=== PATIENT | male | born 1955 | race Caucasian/White ===

== ENCOUNTER 2024-04-17 17:56 | Inpatient (IN) | payer MEDICARE, MEDICAID, SELFPAY ==
[2024-04-17 14:23] VITALS: BMI 28.3
[2024-04-17 14:26] VITALS: BP 129/78
[2024-04-17 14:48] LABS: % Basophils 0.6 % (0-2); % Eosinophils 0.1 % (0-6); % Immature Granulocytes 2.2 % (0-0.5); % Monocytes 11.6 % (1.7-9.3); % Neutrophils 77.5 % (42.2-75.2); Absolute Basophils 0.1 10^3/uL (0-0.2); Absolute Immature Granulocytes 0.5 10^3/uL (0-0.05); Absolute Lymphocytes 1.7 10^3/uL (1.2-3.4); Absolute Monocytes 2.4 10^3/uL (0.1-0.6); Hematocrit 43.9 % (39.0-52.0); Mean Corp Hgb Conc. 34.2 g/dL (33.0-37.0); Mean Corpuscular Hgb 27.8 pg (27.0-31.0); Mean Corpuscular Volume 81.4 fL (80.0-94.0); Mean Platelet Volume 9.8 fL (7.4-10.4); Nucleated Red Blood Cells % 0 % (-); Platelet Count 422 10^3/uL (130-400); Red Blood Cell Count 5.39 10^6/uL (4.70-6.10); Red Cell Dist. Width 13.6 % (11.5-14.5); White Blood Cell Count 20.7 10^3/uL (4.8-10.8)
[2024-04-17 15:05] LABS: ALT (SGPT) 51 U/L (0-50); AST (SGOT) 54 U/L (17-59); Albumin 3.6 g/dl (3.5-5.0); Alkaline Phosphatase 114 U/L (38-126); Blood Urea Nitrogen 26 mg/dl (9-20); Calcium 8.3 mg/dl (8.4-10.2); Carbon Dioxide 27 mmol/L (22-30); Chloride 87 mmol/L (98-107); Glucose 123 mg/dl (70-99); Potassium 3.8 mmol/L (3.5-5.1); Sodium 127 mmol/L (135-145); Total Bilirubin 1.4 mg/dl (0.2-1.3); Total Protein 6.8 g/dl (6.3-8.2); eGFR > 60.00
[2024-04-17 15:08] LABS: COVID-19 Antigen Negative (Negative)
[2024-04-17 17:00] VITALS: BP 149/88
--- NOTE | 2024-04-17 17:09 | ED.GENMED ---
History of Present Illness
General
Chief Complaint: Breathing Problem
Source: patient and family (Brother)
Exam Limitations: none
Time Seen by Provider: 04/17/24 16:59
History of Present Illness
History of Present Illness:
68-year-old male started with congestion weakness about a week ago. Decreased intake. Cough with green sputum. Mild shortness of breath. Very weak.
Past History
Past History
ED Past Medical History: None
Review of Systems
Review of Systems
All Other Systems: Not applicable
Constitutional: Reports fever
Respiratory: Reports cough; Denies hemoptysis
Cardiac: Reports no symptoms
Phy Exam
Physical Exam
Physical Exam:
GENERAL: Alert and oriented. Generally weak appearing
EYE: Orbits normal.
NECK: Supple, no significant adenopathy.
ENT: Pharynx without erythema
CARDIAC: Regular rate and rhythm without any obvious murmurs.
LUNGS: Coarse cough and diffuse expiratory rhonchi
ABDOMEN: Soft, without focal tenderness or distention
NEUROLOGICAL: Alert and oriented , grossly non-focal
SKIN: Warm and dry, no rash or lesion, no discoloration, skin intact.
MUSCULOSKELETAL: No edema,no deformity.Good color
PSYCH: Normal and appropriate interaction.
Scores
Heart Failure Risk
Heart Failure Risk Score: Not Applicable
Course
Orders/Labs/Results
Orders:
Orders
04/17/24 14:29
CXR2 [CR Chest - 2 Views ] Urgent
Comment:
Reason For Exam: Congestion, cough
04/17/24 14:39
CMP [Comprehensive Metabolic Panel] Urgent
COVID-19 Antigen Urgent
Source: Nasal Swab
Complete Blood Count/With Diff Urgent
Influenza A+B Rapid Molecular Urgent
GABINO Source: Nasal Swab
Specimen Description:
04/17/24 Dinner
Regular
04/17/24 17:08
IV Insert/Care/Rem.- Treatment PRN
0.9% Sodium Chloride 1000 ml [Nss] 1,000 ml IV BOLUS
Azithromycin 500 mg/250 ml [Zithromax Infusion] 500 mg in 250 ml IV NOW
CefTRIAXone [Rocephin] 1,000 mg IV NOW STA
04/17/24 17:41
Admit/Transfer Patient As Directed
Co-Sign Provider:
Level of Care: Inpatient admission
Assign to:: Medical/Surgical
Physician / Group: [email or web address]
Diagnosis: Acute viral influenza A infection, asthmatic bronchitis, Rt LLL PNA
Reason for Hospitalization: Acute viral influenza A infection
Associated asthmatic bronchitis
POX CXR for Rt LL infiltrate suspect PNA ( Viral vs Bacterial) ; POS Coloed sputum
Associated with acute hypoxic RI with marginal POx
Assciated general debilty due to weakness
POX CXR for Rt LL infiltrate suspect PNA ( Viral vs Bacterial) ; POS Coloed sputum
Associated with acute hypoxic RI with marginal POx
Assciated general debilty due to weakness
Expected length of stay greater than two midnights?: Yes
ELOS- Estimated Length of Stay in days: 3
I certify the patient meets the requirements for IP care: Yes
PRN Pain Medication Management As Directed
May give lesser potent ordered pain med per pt: Yes
preference::
Protocol:: Medication orders for pain may be administered in a
manner that supports deferring to patient preference
when the pt is:
- Requesting an ordered lesser potent pain medication.
Least to most potent pain medications are defined
as: acetaminophen < NSAID < tramadol < opioids
(morphine, oxycodone, hydromorphone).
- Requesting a lesser dose of the same medication IF
ORDERED.
- Requesting a less intrusive route of administration
if both routes are prescribed by the provider (PO <
IV).
04/17/24 17:43
Code Status As Directed
Resuscitation Status: Full Code
04/17/24 20:45
0.9% Sodium Chloride 1000 ml [Nss] 1,000 ml IV 60 mls/hr
Enoxaparin Sodium [Lovenox] 40 mg SC QPM
Guaifenesin [Mucinex] 600 mg PO Q12
MethylPREDNISolone [Medrol] 24 mg PO ONCE ONE
Oseltamivir Phosphate [Tamiflu] 75 mg PO BID
Oseltamivir Phosphate [Tamiflu] 75 mg PO NOW STA
04/17/24 20:45
Respiratory Culture/Gram Stain Urgent
GABINO Source: Sputum
Specimen Description:
Activity As Directed
Activity Level: Out of Bed-Early Mobility
Intake/ Output As Directed
Frequency: Per unit guidelines
Vital Signs As Directed
Frequency: Per unit guidelines
Weight As Directed
Frequency: Once
Comment: on admission
Pt Eval And Treat Routine
Activity Level: With Assistance
DX Deep Vein Thrombosis Video Routine
04/17/24 20:55
Procalcitonin Routine
PCT Algorithmm Indication: Respiratory
04/17/24 22:00
Doxycycline [Vibramycin] 100 mg PO Q12
04/18/24 06:00
Complete Blood Count/No Diff IN AM
Comprehensive Metabolic Panel IN AM
04/18/24 08:00
MethylPREDNISolone [Medrol] 20 mg PO ONCE ONE
04/18/24 12:00
CefTRIAXone [Rocephin] 1,000 mg IV Q24H
04/19/24 08:00
MethylPREDNISolone [Medrol] 16 mg PO ONCE ONE
04/20/24 08:00
MethylPREDNISolone [Medrol] 12 mg PO ONCE ONE
04/21/24 08:00
MethylPREDNISolone [Medrol] 8 mg PO ONCE ONE
04/22/24 08:00
MethylPREDNISolone [Medrol] 4 mg PO ONCE ONE
Abnormal Lab Results
04/17/24
14:39
WBC 20.7 H 10^3/uL
(4.8-10.8)
Plt Count 422 H 10^3/uL
(130-400)
Abs Immat Gran (auto) 0.5 H 10^3/uL
(0-0.05)
Absolute Neuts (auto) 16.0 H 10^3/uL
(1.4-6.5)
Absolute Monos (auto) 2.4 H 10^3/uL
(0.1-0.6)
Immature Gran % 2.2 H %
(0-0.5)
Neutrophils % 77.5 H %
(42.2-75.2)
Lymphocytes % 8.0 L %
(20.5-51.1)
Monocytes % 11.6 H %
(1.7-9.3)
Sodium 127 L mmol/L
(135-145)
Chloride 87 L mmol/L
(98-107)
BUN 26 H mg/dl
(9-20)
Glucose 123 H mg/dl
(70-99)
Calcium 8.3 L mg/dl
(8.4-10.2)
Total Bilirubin 1.4 H mg/dl
(0.2-1.3)
ALT 51 H U/L
(0-50)
04/17/24 14:39
04/17/24 14:39
Vital Signs
Initial and Last Documented VS:
Initial Vital Signs
Pulse Resp BP Pulse Ox
83 18 129/78 92
04/17/24 14:26 04/17/24 14:26 04/17/24 14:26 04/17/24 14:26
Last Documented Vital Signs
Temp Pulse Resp BP Pulse Ox
97.8 F 92 22 157/82 95
04/17/24 20:16 04/17/24 20:16 04/17/24 20:16 04/17/24 20:16 04/17/24 20:16
MDM/Problems Addressed
Differential Diagnosis Includes:
Patient with influenza positive. Also generally weak. In addition may have a secondary bacterial right lower lobe infiltrate. Patient is homeless. Warrants inpatient management
*Radiology
Radiology exam reviewed: preliminary read by ED provider (Right lower lobe infiltrate)
*Pulse Oximetry
Patient hypoxic: no (Borderline)
*Critical Care Note
Total Time (30-74mins, 75-104mins- exclusive of procedures): Not Applicable
ED Attending Note
-
Portions of this chart may have been created with voice recognition software.� Occasional wrong word or��sound alike� substitutions may have occurred due to the inherent limitations of voice recognition software.
Discharge Plan
Departure
Patient Disposition: Admit
Date of Disposition: 04/17/24
Time of Disposition: 17:11
Presentation/result/management discussed w/ accepting MD/DO: Hospitalist
Discharge Problem:
Influenza, Right lower lobe infiltrate, Severe weakness
Interventions
Interventions:
*Risk Screen - Suicide Last Done: 04/17/24 14:26
*General Assessment Last Done: 04/17/24 14:26
*ED COVID-19 Vaccine History Last Done: 04/17/24 14:26
ED- Cardiac Assessment Last Done: 04/17/24 17:50
ED- Pulmonary Assessment Last Done: 04/17/24 17:50
--- NOTE | 2024-04-17 17:34 | HPS.HSE ---
Family Physician
-
Family Physician:
Chief Complaint
-
congestion weakness
History of Present Illness
68M No significant PMHX seen at ER;
- pw congestion weakness about a week ago.
- decreased PO intake.
- cough with green sputum.
- mild shortness of breath
- very weak.
Medical History
Past Medical History
Past Medical History: Reports None
Past Surgical History: Reports None
Social History
Tobacco: Non-smoker
Alcohol: None
Family History
Family History: Not pertinent
Allergies / Home Medications
Allergies reflects when Allergies were last updated in [employer].
Home Medications with original date entered in [employer]
Allergy/Medication List:
Allergies
Allergy/AdvReac Type Severity Reaction Status Date / Time
No Known Allergies Allergy Verified 04/17/24 14:29
Home Medications
No Meds [No Current Medications] 04/17/24
Review of Systems
-
Constitutional: Reports No Symptoms
EENT: Reports No Symptoms
Respiratory: Reports See HPI, Cough and Trouble Breathing
Cardiac: Reports No Symptoms
Abdomen/GI: Reports No Symptoms
: Reports No Symptoms
Musculoskeletal: Reports No Symptoms
Skin: Reports No Symptoms
Neurological: Reports Weakness
Endocrine: Reports No Symptoms
Hematologic/Lymphatic: Reports No Symptoms
Psych: Reports No Symptoms
Physical Exam
Vital Signs
Vital Signs
Temp Pulse Resp BP Pulse Ox
97.5 F 83 18 129/78 92
04/17/24 17:19 04/17/24 14:26 04/17/24 14:26 04/17/24 14:26 04/17/24 14:26
Physical Exam
General: Well Developed, Well Nourished and No Apparent Distress
HEENT: NormoCephalic, Moist mucous membranes and Atraumatic
Respiratory: Wheezes (Coarse cough and diffuse expiratory rhonchi)
Cardiac: S1/S2 and Regular Rhythm; No Murmur or Rub
GI: Soft, Non Tender, Non Distended and Normal Bowel Sounds; No Organomegaly
Rectal: Deferred by Provider
Musculoskeletal: No Clubbing, No Cyanosis and No Edema
Skin: No Rash
Neuro: Nonfocal/grossly intact
Laboratory Results
-
04/17/24 14:39
04/17/24 14:39
Laboratory Results
Total Bilirubin 1.4 mg/dl (0.2-1.3) H 04/17/24 14:39
AST 54 U/L (17-59) 04/17/24 14:39
ALT 51 U/L (0-50) H 04/17/24 14:39
Alkaline Phosphatase 114 U/L (38-126) 04/17/24 14:39
Data Reviewed
-
Diagnostic Radiology: Other
Lab Data: Labs Reviewed by me
Impression/Plan
-
Vital Signs
Temp Pulse Resp BP Pulse Ox
97.5 F 83 18 129/78 92 on RA
04/17/24 17:19 04/17/24 14:26 04/17/24 14:26 04/17/24 14:26 04/17/24 14:26
Laboratory Tests
04/17/24
14:39
WBC 20.7 H
Hgb 15.0
Plt Count 422 H
Sodium 127 L
Chloride 87 L
BUN 26 H
Creatinine 1.1
eGFR > 60.00
Total Bilirubin 1.4 H
ALT 51 H
SARS-CoV-2 Antigen Negative
CXR: pending final report , I suspct Rt LL infiltrate
No prior Last hospitalist admission:
ASSESSMENT & PLAN
Acute viral influenza A infection
Associated asthmatic bronchitis or reactive AW c/b acute hypoxic RI with marginal POx
POX CXR for Rt LL infiltrate suspect PNA ( Viral vs Bacterial) ; POS Colored sputum
Associated general debility due to weakness and deconditioning
- start Tamiflu
- start Medrol dose pack
- Agree with IV CFTX , add PO Doxy in place of Azithromycin
- check PCT
- Mucinex BID
- Supplemental O2 PRN; Gaol POx to keep above 93
- PT/OT
Hypovolemic hyponatremia due to dehydration and poor PO intake
s/p NS 1 L
- cont NS @ 60/H
- trend BMP in AM
DVT Px: LMWH
Code: Full code
IP MS
[2024-04-17] MEDS: NSS 1000 IV ×2 (17:48→21:25)
[2024-04-17 18:00] VITALS: BP 149/88
[2024-04-17] MEDS: STERILE WATER FOR INJECTION 10 ML IV (18:03)
[2024-04-17] MEDS: ROCEPHIN 1000 MG IV (18:03)
[2024-04-17] MEDS: ZITHROMAX INFUSION 250 IV (18:10)
[2024-04-17 18:17] VITALS: BP 165/79
[2024-04-17] MEDS: DUONEB 3 ML INH (20:00)
[2024-04-17 20:16] VITALS: BP 157/82
--- NOTE | 2024-04-17 20:16 | EDRN ---
Report received, introduced myself to patient, he is asking about something to help him sleep, did shirley romero hospitalist, they would prefer not to, however if still awake around [phone], she said to let her know and she will order something,
patient resting comfortably with call archibald in reach.
[2024-04-17] MEDS: MEDROL 24 MG PO (21:23)
[2024-04-17] MEDS: VIBRAMYCIN 100 MG PO (21:23)
[2024-04-17] MEDS: LOVENOX 40 MG SC (21:23)
[2024-04-17] MEDS: MUCINEX 600 MG PO (21:23)
[2024-04-17] MEDS: TAMIFLU 75 MG PO (21:24)
[2024-04-17 21:29] LABS: Procalcitonin 1.64 ng/ml (0.0-0.25)
[2024-04-17 22:55] VITALS: BP 149/74
--- NOTE | 2024-04-17 23:46 | EDRN ---
Emptied patients urinal and provided with another glass of water for him, resting comfortably with no complaints at this time, call archibald in reach.
[2024-04-18 00:30] VITALS: BP 168/81
--- NOTE | 2024-04-18 02:23 | EDRN ---
Got patient another water and emptied his urinal, resting comfortably at this time.
[2024-04-18 03:24] VITALS: BP 160/90
[2024-04-18 04:34] VITALS: BP 158/89
[2024-04-18 06:25] LABS: Hematocrit 41.6 % (39.0-52.0); Hemoglobin 13.7 g/dL (13.0-18.0); Mean Corp Hgb Conc. 32.9 g/dL (33.0-37.0); Mean Corpuscular Hgb 27.8 pg (27.0-31.0); Mean Corpuscular Volume 84.6 fL (80.0-94.0); Mean Platelet Volume 10.3 fL (7.4-10.4); Platelet Count 428 10^3/uL (130-400); Red Blood Cell Count 4.92 10^6/uL (4.70-6.10); Red Cell Dist. Width 13.7 % (11.5-14.5); White Blood Cell Count 16.8 10^3/uL (4.8-10.8)
[2024-04-18 06:58] LABS: ALT (SGPT) 48 U/L (0-50); AST (SGOT) 55 U/L (17-59); Albumin 3.1 g/dl (3.5-5.0); Alkaline Phosphatase 106 U/L (38-126); Blood Urea Nitrogen 20 mg/dl (9-20); Calcium 7.8 mg/dl (8.4-10.2); Carbon Dioxide 23 mmol/L (22-30); Chloride 95 mmol/L (98-107); Estimated Creatinine Clearance 97 ml/min; Glucose 114 mg/dl (70-99); Potassium 4.7 mmol/L (3.5-5.1); Sodium 131 mmol/L (135-145); Total Protein 6.3 g/dl (6.3-8.2); eGFR > 60.00
[2024-04-18] MEDS: DUONEB 3 ML INH ×4 (07:35→19:45)
[2024-04-18] MEDS: TAMIFLU 75 MG PO ×2 (08:20→19:45)
[2024-04-18] MEDS: VIBRAMYCIN 100 MG PO ×2 (08:20→19:45)
[2024-04-18] MEDS: MUCINEX 600 MG PO ×2 (08:20→19:45)
[2024-04-18] MEDS: MEDROL 20 MG PO (08:20)
[2024-04-18] MEDS: ROCEPHIN 1000 MG IV (11:52)
[2024-04-18] MEDS: STERILE WATER FOR INJECTION 10 ML IV (11:53)
[2024-04-18 14:03] VITALS: BP 142/76
[2024-04-18 15:07] VITALS: BP 142/76; PULSE 94; O2SAT 98
--- NOTE | 2024-04-18 15:13 | W.PN.HOSP.TC ---
Today's Communication/Plan
-
Tamiflu
Supportive care
Doxycycline Rocephin
Incentive spirometer Acapella
BMP in the a.m. for sodium monitoring
Encourage p.o. intake
Assessment / Plan
Assessment / Plan
Sepsis source pulmonary
-Flu A+ with superimposed bacterial pneumonia
-Procalcitonin high
-Sputum culture
-Tamiflu twice daily
--Supportive measures antipyretics antitussives
-Rocephin doxycycline
-Isolation precautions
-Incentive spirometer and Acapella
Acute hypoxemic respiratory failure secondary to above
-Wean oxygen as tolerated
-Goal spo2 >90%
Hyponatremia Hypovolemic likely secondary to insensible losses
-Encourage p.o. intake
-If not improving will need to check urine osm/Tami
Anticipated Discharge: > 48 hours
Subjective/Interval History
-
Date of Service: April 18, 2024
Seen and examined. States he is feeling slightly better. However continues to have green productive cough. Still feeling weak and tired. Requiring supplemental oxygen.
Objective Data
-
Labs:
Laboratory Results
04/18/24
05:48
WBC 16.8 H
Hgb 13.7
Hct 41.6
Plt Count 428 H
Sodium 131 L
Potassium 4.7
Chloride 95 L
Carbon Dioxide 23
BUN 20
Creatinine 0.8
Glucose 114 H
Calcium 7.8 L
Total Bilirubin 1.0
AST 55
ALT 48
Alkaline Phosphatase 106
Vital Signs:
Vital Signs
Temp Pulse Resp BP Pulse Ox
97.6 F 103 22 142/76 94
04/18/24 14:03 04/18/24 14:03 04/18/24 14:03 04/18/24 14:03 04/18/24 14:03
I&O
04/17/24 04/18/24 04/19/24
06:59 06:59 06:59
Intake Total 1250 / 1250
Output Total 1450 / 1450
Balance -200 / -200
Physical Exam
-
General: Well Developed, No Apparent Distress, Fever, Chills, Sweats and Conversant
HEENT: Normocephalic and Atraumatic
Respiratory: Rhonchi
Cardiac: Regular Rhythm and S1/S2
GI: Soft, Nontender, Nondistended and Normal Bowel Sounds
Musculoskeletal: No Clubbing and No Cyanosis
Skin: Warm and Dry
Neuro: Awake, Alert, Oriented and AO x 3
Psych: Calm
[2024-04-18] MEDS: LOVENOX 40 MG SC (18:34)
[2024-04-18 18:42] VITALS: BP 152/74
[2024-04-18] MEDS: NSS IV (20:01)
[2024-04-18 20:29] VITALS: BMI 28.3
[2024-04-19] VITALS: BP 135/79
[2024-04-19] MEDS: DUONEB 3 ML INH ×4 (06:44→20:33)
--- NOTE | 2024-04-19 08:37 | W.PN.UPDATE ---
Update Note
Progress Note Update
I saw and evaluated the patient. I reviewed the resident�s note and agree with findings and plan as documented in the resident�s note.
No new complaints.
Gen: NAD, AAOx3.
Eyes: EOMI, PERRLA, no scleral icterus.
Neck: supple.
CV: RRR, +S1/S2, no m/r/g.
Resp: CTAB, no rales, wheezes, or rhonchi.
Abd: +BS, soft, NT, ND
Skin: No rashes.
Neuro: CN 2-12 intact, non-focal.
Psych: Normal mood and affect.
CXR: mod B/L lower lobe PNA
Acute hypoxemic respiratory failure and sepsis due to influenza A viral infection with superimposed bacterial pneumonia:
-Procalcitonin 1.64
-cont Tamiflu/Rocephin/Doxy
-stop Medrol (no indication)
-currently on 5L NC O2, wean O2 as tolerated
Hypovolemic Hyponatremia:
-improving s/p IVFs
-resume IVFs with NS @ 75cc/hr
FULL/Lovenox
--- NOTE | 2024-04-19 09:02 | W.PN.HOSP.TC ---
Today's Communication/Plan
-
Wean oxygen as able
Continue antibiotics
Incentive spirometry and Acapella
Assessment / Plan
Assessment / Plan
Impression
Influenza A positive with superimposed bacterial pneumonia
Acute hypoxemic respiratory insufficiency
Hypovolemic hyponatremia
Plan
Influenza A positive with superimposed bacterial pneumonia
Tamiflu twice daily-day 2
Continue Rocephin and doxycycline
Incentive spirometry and Acapella
Supportive measures
Antipyretics
Antitussives
PT/OT
Acute hypoxemic respiratory insufficiency secondary to above
On 5 L O2
Wean oxygen as tolerated
Goal spo2 >90%
Hypovolemic hyponatremia
Encourage p.o. intake
If not improving will need to check urine osm/Tami
Follow BMP
Full code
DVT prophylaxis Lovenox
Anticipated Discharge: > 48 hours
Subjective/Interval History
-
Date of Service: April 19, 2024
No over night events
Objective Data
-
Labs:
Laboratory Results
04/19/24
07:41
WBC Pending
Hgb Pending
Hct Pending
Plt Count Pending
Sodium Pending
Potassium Pending
Chloride Pending
Carbon Dioxide Pending
BUN Pending
Creatinine Pending
Glucose Pending
Calcium Pending
Vital Signs:
Vital Signs
Temp Pulse Resp BP Pulse Ox
97.7 F 88 20 135/79 99
04/19/24 00:00 04/19/24 06:47 04/19/24 06:47 04/19/24 00:00 04/19/24 02:51
I&O
04/18/24 04/19/24 04/20/24
06:59 06:59 06:59
Intake Total 1250 / 1250 1200 / 1200
Output Total 1450 / 1450 600 / 600
Balance -200 / -200 600 / 600
Review of Systems
-
All other systems: Reviewed and negative
Physical Exam
-
General: Comfortable
Respiratory: Other (on 5 L NC, decreased breath sounds at the bases bilaterally) and Chest Tubes
Cardiac: Regular Rhythm and S1/S2
Musculoskeletal: No Edema
Neuro: AO x 3
Data Reviewed
-
Labs: Labs Reviewed by me and Discussed with Physician
[2024-04-19] MEDS: VIBRAMYCIN 100 MG PO ×2 (09:21→19:14)
[2024-04-19] MEDS: MUCINEX 600 MG PO ×2 (09:21→19:14)
[2024-04-19] MEDS: TAMIFLU 75 MG PO ×2 (09:21→19:14)
[2024-04-19 09:33] VITALS: BP 164/89
[2024-04-19] MEDS: NSS 1000 IV ×2 (10:04→21:18)
[2024-04-19 10:13] LABS: % Basophils 0.8 % (0-2); % Eosinophils 0.2 % (0-6); % Immature Granulocytes 4.8 % (0-0.5); % Lymphocytes 12.2 % (20.5-51.1); % Monocytes 9.5 % (1.7-9.3); % Neutrophils 72.5 % (42.2-75.2); Absolute Basophils 0.1 10^3/uL (0-0.2); Absolute Immature Granulocytes 0.8 10^3/uL (0-0.05); Absolute Lymphocytes 2.1 10^3/uL (1.2-3.4); Absolute Monocytes 1.6 10^3/uL (0.1-0.6); Absolute Neutrophils 12.5 10^3/uL (1.4-6.5); Hematocrit 41.7 % (39.0-52.0); Hemoglobin 14.4 g/dL (13.0-18.0); Mean Corp Hgb Conc. 34.5 g/dL (33.0-37.0); Mean Corpuscular Hgb 28.1 pg (27.0-31.0); Mean Corpuscular Volume 81.4 fL (80.0-94.0); Mean Platelet Volume 9.9 fL (7.4-10.4); Nucleated Red Blood Cells % 0 % (-); Platelet Count 397 10^3/uL (130-400); Red Blood Cell Count 5.12 10^6/uL (4.70-6.10); White Blood Cell Count 17.2 10^3/uL (4.8-10.8)
[2024-04-19] MEDS: ROCEPHIN 1000 MG IV (13:05)
[2024-04-19] MEDS: STERILE WATER FOR INJECTION 10 ML IV (13:06)
[2024-04-19 13:46] LABS: Blood Urea Nitrogen 18 mg/dl (9-20); Calcium 8.3 mg/dl (8.4-10.2); Carbon Dioxide 26 mmol/L (22-30); Chloride 98 mmol/L (98-107); Estimated Creatinine Clearance 111 ml/min; Glucose 132 mg/dl (70-99); Potassium 4.1 mmol/L (3.5-5.1); Sodium 134 mmol/L (135-145); eGFR > 60.00
--- NOTE | 2024-04-19 16:40 | CM ---
CM met with patient and brother in room. Patient is currently homeless and is staying at [facility]. He plans to move to another [facility] after the end of this month. Patient is accompanied by his brother who is also
homeless, but provides support. Patient lives in his truck in the summertime.
Patient's brother expressed concern that patient would not be able to do well on streets. He feels he may need rehab. CM will await further clinical outcome
CM discussed [facility] and patient stated that he would be agreeable to it if needed.
[2024-04-19 17:49] VITALS: BP 171/92
[2024-04-19] MEDS: LOVENOX 40 MG SC (17:59)
--- NOTE | 2024-04-19 21:00 | PTCARENOTE ---
Pt arrived to unit via wheelchair around 2100 and was able to walk to bed with standby assistance. VSS. pt able to make needs known, RN showed pt how to use call archibald. Urinal @ bedside. RN COMPLETED ADMISSION DOCUMENTATION
[2024-04-19 21:10] VITALS: BP 166/99
[2024-04-19 21:20] VITALS: BMI 28.8
[2024-04-19 23:00] VITALS: BP 187/99
[2024-04-20] VITALS (7 sets, daily range): BP systolic 157–176; BP diastolic 94–102; PULSE 86; O2SAT 95; BMI 28.8
[2024-04-20] MEDS: DUONEB INH (08:04)
[2024-04-20] MEDS: TAMIFLU 75 MG PO ×2 (08:46→20:09)
[2024-04-20] MEDS: MUCINEX 600 MG PO ×2 (08:46→20:09)
[2024-04-20] MEDS: VIBRAMYCIN 100 MG PO ×2 (08:46→20:09)
[2024-04-20] MEDS: DUONEB 3 ML INH ×3 (11:52→19:49)
[2024-04-20] MEDS: NSS 1000 IV (12:07)
--- NOTE | 2024-04-20 12:28 | W.PN.HOSP.TC ---
Today's Communication/Plan
-
See plan, likely discharge tomorrow
Assessment / Plan
Assessment / Plan
Gen: NAD, awake and alert
Eyes: EOMI, PERRLA, no scleral icterus.
Neck: supple.
CV: Remains RRR, +S1/S2, no m/r/g.
Resp: Remains CTAB, no rales, wheezes, or rhonchi.
Abd: +BS, soft, NT, ND
Skin: No rashes.
Neuro: CN 2-12 intact, non-focal.
Psych: Normal mood and affect.
CXR: mod B/L lower lobe PNA
Acute hypoxemic respiratory failure and sepsis due to influenza A viral infection with superimposed bacterial pneumonia:
-Procalcitonin 1.64
-cont Tamiflu/Rocephin/Doxy
-Medrol stopped 04/19/24 as there was no indication
-was on 5L NC O2, now saturating well on RA
Hypovolemic Hyponatremia:
-improving s/p IVFs
FULL/Lovenox
Anticipated Discharge: Within 24 hours
Subjective/Interval History
-
Date of Service: April 20, 2024
No new complaints.
Objective Data
-
Vital Signs:
Vital Signs
Temp Pulse Resp BP Pulse Ox
97.3 F 88 16 157/97 95
04/20/24 07:00 04/20/24 11:56 04/20/24 11:56 04/20/24 12:10 04/20/24 12:10
I&O
04/19/24 04/20/24 04/21/24
06:59 06:59 06:59
Intake Total 1200 / 1200 960 / 960 705 / 705
Output Total 600 / 600 900 / 900
Balance 600 / 600 60 / 60 705 / 705
[2024-04-20] MEDS: ROCEPHIN 1000 MG IV (13:19)
[2024-04-20] MEDS: STERILE WATER FOR INJECTION 10 ML IV (13:20)
[2024-04-20] MEDS: LOVENOX 40 MG SC (17:19)
--- NOTE | 2024-04-21 00:47 | PTCARENOTE ---
Justus MOSQUERA made aware of pt's BP 166/101 via dynamap, 164/104 manually. No further orders received.
[2024-04-21] MEDS: NSS 1000 IV (01:55)
[2024-04-21 07:00] VITALS: BP 185/109
--- NOTE | 2024-04-21 07:00 | W.PN.HOSP.TC ---
Today's Communication/Plan
-
d/c
Assessment / Plan
Assessment / Plan
Gen: NAD, awake and alert
Eyes: EOMI, PERRLA, no scleral icterus.
Neck: supple.
CV: continues to remain RRR, +S1/S2, no m/r/g.
Resp: continues to remain CTAB, no rales, wheezes, or rhonchi.
Abd: +BS, soft, NT, ND
Skin: No rashes.
Neuro: remains CN 2-12 intact, non-focal.
Psych: Normal mood and affect.
CXR: mod B/L lower lobe PNA
Acute hypoxemic respiratory failure and sepsis due to influenza A viral infection with superimposed bacterial pneumonia:
-Procalcitonin 1.64
-has been on Tamiflu/Rocephin/Doxy. On discharge, Tamiflu to complete 5 days, Augmentin and Doxy to complete 7 days (today is day 5 abx)
-Medrol stopped 04/19/24 as there was no indication
-was on 5L NC O2, now saturating well on RA
Hypovolemic Hyponatremia:
-resolved with IVFs
FULL/Lovenox
Total time spent on d/c = 31 min. This included today's physical exam, progress note, review of laboratory and diagnostic data, preparation of discharge documents and prescriptions, and discussions about the pt's hospital course and discharge plan
with the patient and other medical social consultant involved in the patient's care.
Anticipated Discharge: Today
Subjective/Interval History
-
Date of Service: April 21, 2024
No new complaints.
Objective Data
-
Vital Signs:
Vital Signs
Temp Pulse Resp BP Pulse Ox
97.8 F 76 18 166/101 95
04/20/24 23:40 04/20/24 23:40 04/20/24 23:40 04/20/24 23:40 04/20/24 23:40
I&O
04/20/24 04/21/24 04/22/24
06:59 06:59 06:59
Intake Total 960 / 960 5490 / 5490
Output Total 900 / 900 4300 / 4300
Balance 60 / 60 1190 / 1190
[2024-04-21] MEDS: DUONEB 3 ML INH ×3 (07:37→15:52)
[2024-04-21 07:40] LABS: Hematocrit 42.9 % (39.0-52.0); Hemoglobin 14.3 g/dL (13.0-18.0); Mean Corp Hgb Conc. 33.3 g/dL (33.0-37.0); Mean Corpuscular Hgb 27.9 pg (27.0-31.0); Mean Corpuscular Volume 83.6 fL (80.0-94.0); Mean Platelet Volume 9.3 fL (7.4-10.4); Platelet Count 510 10^3/uL (130-400); Red Blood Cell Count 5.13 10^6/uL (4.70-6.10); Red Cell Dist. Width 14.1 % (11.5-14.5); White Blood Cell Count 13.4 10^3/uL (4.8-10.8)
[2024-04-21 07:41] LABS: Blood Urea Nitrogen 11 mg/dl (9-20); Calcium 8.6 mg/dl (8.4-10.2); Carbon Dioxide 20 mmol/L (22-30); Chloride 103 mmol/L (98-107); Estimated Creatinine Clearance 94 ml/min; Glucose 92 mg/dl (70-99); Potassium 4.4 mmol/L (3.5-5.1); Sodium 135 mmol/L (135-145); eGFR > 60.00
[2024-04-21] MEDS: MUCINEX 600 MG PO (08:32)
[2024-04-21] MEDS: TAMIFLU 75 MG PO (08:32)
[2024-04-21] MEDS: APRESOLINE 10 MG IV (08:32)
[2024-04-21] MEDS: VIBRAMYCIN 100 MG PO ×2 (08:32→16:15)
--- NOTE | 2024-04-21 08:54 | W.PN.HOSP.TC ---
Today's Communication/Plan
-
Patient is medically cleared to be dc today however patient's brother is concerned as they both are homeless and live in their trucks. He is concerned that patient will fall sick again as the heating system in car is not working. Will defer this to
CM.
Dispo meds - cefdinir 300 mg q12 PO x 2 days to complete abx ccourse
doxycycline 100 mg BID x 2 days
Tamiflu 75 mg PO for 1 day to complete 5 day course
Assessment / Plan
Assessment / Plan
Impression
Influenza A positive with superimposed bacterial pneumonia
Acute hypoxemic respiratory insufficiency
Hypovolemic hyponatremia
Plan
Influenza A positive with superimposed bacterial pneumonia
Patient is medically stable to be discharged today.
Tamiflu twice daily-day 4
Will switch to cefdinir 300 mg PO every 12 hours for the 2 more days
Doxycycline PO 100 mg BID for 2 more days to complete the abx course
Incentive spirometry and Acapella
Supportive measures
Antipyretics
Antitussives
PT/OT
Acute hypoxemic respiratory insufficiency secondary to above
resolved
ON RA
Hypovolemic hyponatremia-- resolved with IVF
Full code
DVT prophylaxis Lovenox
Anticipated Discharge: Today
Subjective/Interval History
-
Date of Service: April 21, 2024
no overnight events
Objective Data
-
Labs:
Laboratory Results
04/21/24
07:17
WBC 13.4 H
Hgb 14.3
Hct 42.9
Plt Count 510 H D
Sodium 135
Potassium 4.4
Chloride 103
Carbon Dioxide 20 L
BUN 11
Creatinine 0.8
Glucose 92
Calcium 8.6
Vital Signs:
Vital Signs
Temp Pulse Resp BP Pulse Ox
97.9 F 86 16 185/109 96
04/21/24 07:00 04/21/24 08:32 04/21/24 07:39 04/21/24 08:32 04/21/24 07:39
I&O
04/20/24 04/21/24 04/22/24
06:59 06:59 06:59
Intake Total 960 / 960 5490 / 5490
Output Total 900 / 900 4300 / 4300
Balance 60 / 60 1190 / 1190
Review of Systems
-
All other systems: Reviewed and negative
Physical Exam
-
General: No Apparent Distress
HEENT: Normocephalic and Atraumatic
Respiratory: Decreased Breath Sounds (at the bases )
Cardiac: Regular Rhythm and S1/S2
Musculoskeletal: No Edema
Neuro: AO x 3
Psych: Calm
Data Reviewed
-
Labs: Labs Reviewed by me and Discussed with Physician
[2024-04-21] MEDS: STERILE WATER FOR INJECTION 10 ML IV ×3 (11:55→16:15)
[2024-04-21] MEDS: ROCEPHIN 1000 MG IV ×2 (11:55→16:15)
--- NOTE | 2024-04-21 13:21 | CM ---
Addendum entered by RADHA Delgado 04/21/24 15:50:
Patient stated that his brother can transfer home.
Original Note:
[facility] unit director advised that patient's brother called as he has some concerns about patient returning to the community. Reviewed PT, patient functioning at independent level, therefore would not be able to transfer to a SNF. Met with patient at
bedside. He stated that right now he is living at [facility] on [address] in [place].
He stated that he has two Social Workers at the care home helping him with resources.
In the Spring patient stated that he stays at [facility] in [place] (In July)
Patient has a truck. He has access to food, water and care home. Advised patient that CM could give him a list of alternate shelters however he stated that [facility] has a bed for him upon his return.
Placed a call to patient's brother however there was no answer and no voice mail to leave a message.
Patient updated that CM will remain available for further concerns.
Per RN, patient may be discharged today,
Plan: Case management will continue to follow and assist with discharge planning. [facility] to Assisted.
[2024-04-21 15:00] VITALS: BP 121/74
--- NOTE | 2024-04-22 08:08 | W.DCSUMMARY ---
Discharge Summary
Discharge Data
Date of Admission: 04/17/24
Date of Discharge: 04/21/24
-
Pending Results: No
Hospital Course
Discharging Physician : Dr Jeff Adan, Dr Simone Barber
Disposition : Hotel
Primary care physician : none
Principal Discharge diagnosis :
Influenza A positive with superimposed bacterial pneumonia
Acute hypoxemic respiratory insufficiency
Hypovolemic hyponatremia
Chronic Discharge diagnosis : none
Hospital Course :
68M year old homeless man with no significant PMHX presented to the ED with congestion ,weakness, decreased PO intake, cough with green sputum and mild shortness of breath ogoing for about a week. CXR, Sputum cultures, flu/covid were ordered.
Patient was tested positive for influenza A, negative for COVID. CXR showed bilateral lower lobe pneumonia. Was found in acute hypoxemic respiratory failure requiring oxygen. Lab showed leukocytosis, elevated procalcitonin, hyponatremia. IV
fluids, tamiflu, empiric antibiotics were started. Incentive spirometry and acapella were advised. Over the third day of hospitalization oxygen was weaned off. Patient was able ambulate without being in distress. On the day of discharge patient was
stable to be discharged, on room air, leukocytosis [id number], hyponatremia was resolved. Patient was discharged of cefdinir 300 mg q12, doxycycline 100 BID to complete 7 day course. Tamiflu 75 mg BID to complete 10 day course
Important imaging findings :
CXR- Moderate b/l lower lobe pneumonia
Procedure findings : none
.
Discharge Plan
-
Patient Disposition: Home (Routine Discharge)
Discharge Diagnosis/Procedures: Influenza A positive with superimposed bacterial pneumonia
Acute hypoxemic respiratory insufficiency
Hypovolemic hyponatremia
Condition: Good
Diet: No restrictions
Activity: No restrictions
Driving Restrictions: As prior to admission
Bathing Restrictions: None
Referrals:
NONE,* [Family Provider] -
Additional Discharge Medication Instructions: Take one tablet cefdinir twice daily
Take one tab doxycycline 100 mg twice
Tamiflu 75 mg take one tablet twice daily
please follow up with primary care physician. [facility] a [facility] in [facility]
Prescriptions:
New
cefdinir 300 mg capsule
300 mg PO BID Qty: 4 0RF
doxycycline hyclate 100 mg capsule
100 mg PO BID Qty: 5 0RF
oseltamivir [Tamiflu] 75 mg capsule
75 mg PO DAILY Qty: 2 0RF
Discharge Orders:
Discharge Patient (As Directed); Ordered 04/21/24
Ordered By: Jeff Adan
Discharge Date and Time
Discharge Date/Time: 04/21/24 17:03
Print Language: ESTONIAN
== END 2024-04-21 17:03 | disposition home or self-care (01) | DRG 871 ==
LOC: 3 WEST ACU 17:56
PROVIDERS: Student in an Organized Health Care Education/Training Program; ADMITTING PHYSICIAN Internal Medicine; ATTENDING PHYSICIAN Internal Medicine; EMERGENCY PHYSICIAN Emergency Medicine
DX: A41.9 Sepsis, unspecified organism (principal); J10.00 Influenza due to other identified influenza virus with unspecified type of pneumonia; J96.01 Acute respiratory failure with hypoxia; J15.69 Pneumonia due to other Gram-negative bacteria; E87.1 Hypo-osmolality and hyponatremia; Z59.01 Sheltered homelessness; Z11.52 Encounter for screening for COVID-19; J45.909 Unspecified asthma, uncomplicated; E86.1 Hypovolemia
CPT/HCPCS: 71046; 80048; 80053; 84145; 85025; 85027; 87070; 87077; 87186; 87205; 87449; 87502; 87811; 94640; 96361; 96365; 96375; 97162; 97530; 99284